=== PATIENT | female | born 1955 | race Caucasian/White ===

== ENCOUNTER 2019-02-20 14:14 | Emergency (ER) | payer MEDICARE, MEDICAID ==
[~2019-02-20] VITALS: Ht 157.5 cm; Wt 77.3 kg
[2019-02-20 15:46] LABS: CLARITY,URINE SLIGHTLY CLOUDY (Clear); COLOR,URINE YELLOW (Yellow); GLUCOSE, URINE NEGATIVE (Neg); KETONES,URINE NEGATIVE (Neg); LEUKOCYTE ESTERASE ,URINE SMALL (Neg); NITRITES, URINE NEGATIVE (Neg); OCCULT BLOOD,URINE NEGATIVE (Neg); PROTEIN,URINE NEGATIVE (Neg); UA COLLECTION TYPE CLN CATCH MIDSTREAM; UROBILINOGEN,URINE 0.2 E.U/dL (0.2-1.0)
[2019-02-20 15:55] LABS: SQUAMOUS EPITHELIAL CELL,UR MODERATE /LPF (FEW)
[2019-02-20 15:58] LABS: BACTERIA,URINE 3+ /HPF (Neg); RBC,URINE 0-2 /HPF (0-2)
[2019-02-20 15:59] LABS: TRANSITIONAL EPI CELLS,URINE FEW /HPF
[2019-02-20] MEDS ORDERED: predniSONE 20 mg tablet PO ONE (16:30)
[2019-02-20] MEDS ORDERED: PRED20TA PO (16:33)
[2019-02-20 16:47] LABS: BASOPHILS # (AUTO) 0.1 X10'3 (0-0.2); BASOPHILS % (AUTO) 1.2 % (0-1); EOSINOPHILS % (AUTO) 0.4 % (0-6); HEMATOCRIT 38.5 % (35.0-45.0); HEMOGLOBIN 13.1 g/dl (12.0-16.0); LYMPHOCYTES # (AUTO) 3.5 X10'3 (1.1-4.8); LYMPHOCYTES % (AUTO) 42.3 % (21-51); MEAN CORPUSCULAR HEMOGLOBIN 30.6 PG (27.0-31.0); MEAN CORPUSCULAR HGB CONC 33.9 g/dL (33.0-36.5); MEAN CORPUSCULAR VOLUME 90.2 FL (78-98); MEAN PLATELET VOLUME 8.5 FL (7.4-10.4); MONOCYTES # (AUTO) 0.5 X10'3 (0-0.9); MONOCYTES % (AUTO) 5.8 % (2-12); NEUTROPHILS # (AUTO) 4.1 X10'3 (1.8-7.7); NEUTROPHILS % (AUTO) 50.3 % (42-75); PLATELET COUNT 350 X10'3 (140-440); RED BLOOD COUNT 4.27 X10'6 (4.20-5.60); RED CELL DISTRIBUTION WIDTH 14.8 % (11.5-14.5); WHITE BLOOD COUNT 8.2 X10'3 (4.5-11.0)
[2019-02-20 16:50] VITALS: BP 134/78
[2019-02-20 17:09] LABS: ALANINE AMINOTRANSFERASE 26 U/L (12-78); ALBUMIN 4.1 G/DL (3.4-5.0); ALKALINE PHOSPHATASE 117 IU/L (46-116); ANION GAP 6 (8-16); ASPARTATE AMINO TRANSFERASE 25 U/L (10-37); BILIRUBIN,TOTAL 0.6 MG/DL (0.1-1.0); BLOOD UREA NITROGEN 15 MG/DL (7-18); CALCIUM 9.7 MG/DL (8.5-10.1); CHLORIDE 103 MMOL/L (99-107); GLUCOSE 98 MG/DL (70-104); POTASSIUM 4.2 MMOL/L (3.5-5.1); SODIUM 138 MMOL/L (135-145); TOTAL CARBON DIOXIDE 28.6 MMOL/L (24-32); TOTAL PROTEIN 8.1 G/DL (6.4-8.2); eGFR 56 ML/MIN
[2019-02-20 17:24] LABS: C-REACTIVE PROTEIN 0.19 MG/DL (0.0-0.5)
--- NOTE | 2019-02-23 09:36 | NUR ---
PT CALLED WELLNESS CHECK. INFORMED THAT UA/CULT WAS POSITIVE FOR UTI AND THAT AN RX FOR ABX WILL BE CALLED IN FOR HER. PT REQUESTED THAT RX BE CALLEDT OT [facility] ON [address] PT STATES THAT SHE CONTINUES TO HAVE ARM PAIN WITH NUMBNESS. STATES THAT IF FEELS LIKE HER ARM HAS A TURNICUT ON IT AND THAT HER ARM IS GOING TO EXPLODE. STATES THAT SHE HAS AN APPT WITH PMD THIS WEEK. ADVISED PT TO KEEP APPT WITH PMD FOR HER ARM AND TO NOTIFIY HIM THAT SHE WAS DX WITH A UTI AND IS ON ABX FOR IT. RX FOR KEFLEX 500MG PO QID X 7 DAYS CALLED INTO [facility] [address].
== END 2019-02-20 16:55 | disposition home or self-care (01) ==
LOC: ER 14:15
DX: M79.622 Pain in left upper arm (principal); M25.512 Pain in left shoulder; R07.89 Other chest pain; M54.5 Low back pain; G89.29 Other chronic pain; Z88.2 Allergy status to sulfonamides; Z88.8 Allergy status to other drugs, medicaments and biological substances; Z79.899 Other long term (current) drug therapy
CPT/HCPCS: 36415; 71045; 80053; 81001; 84484; 85025; 85651; 86140; 87077; 87088; 87186; 93005; 99284; J7512

== ENCOUNTER 2023-02-01 15:21 | Emergency (ER) | payer MEDICARE, MEDICAID ==
[~2023-02-01] VITALS: Ht 157.5 cm; Wt 81.0 kg
[2023-02-01 15:30] VITALS: BP 117/78
[2023-02-01] MEDS ORDERED: HYDROcodone/acetaminophen 10/325mg tab PO ONE (16:00)
[2023-02-01] MEDS ORDERED: ketorolac trometh. 30mg/ml inj. IM ONE (16:00)
[2023-02-01] MEDS ORDERED: HYDR-3965 PO (16:58)
--- NOTE | 2023-02-01 17:06 | NUR ---
Pt offered crutches however she refused.
== END 2023-02-01 17:37 | disposition home or self-care (01) ==
LOC: ER 15:22
DX: M25.552 Pain in left hip (principal); Z88.2 Allergy status to sulfonamides; Z88.8 Allergy status to other drugs, medicaments and biological substances
CPT/HCPCS: 73502; 96372; 99283; J1885

== ENCOUNTER 2024-08-11 10:19 | Outpatient (CLI) | payer MEDICARE, MEDICAID | END 2024-08-11 23:59 | disposition home or self-care (01) | LOC: MRI02 10:19 | PROVIDERS: ATTEND Podiatrist Foot & Ankle Surgery | DX: M76.891 Other specified enthesopathies of right lower limb, excluding foot (principal); R60.0 Localized edema; M79.671 Pain in right foot; M72.2 Plantar fascial fibromatosis; G57.91 Unspecified mononeuropathy of right lower limb | CPT/HCPCS: 73721 ==

== ENCOUNTER 2025-02-13 10:59 | Emergency (ER) | payer MEDICARE, MEDICAID ==
[~2025-02-13] VITALS: Ht 154.9 cm; Wt 73.5 kg
[2025-02-13 11:01] VITALS: TEMP 97.3
[2025-02-13 12:09] LABS: BASOPHILS # (AUTO) 0.1 X10'3 (0-0.2); BASOPHILS % (AUTO) 2.5 % (0-1); EOSINOPHILS # (AUTO) 0.1 X10'3 (0-0.9); EOSINOPHILS % (AUTO) 1.1 % (0-6); HEMATOCRIT 39.1 % (35.0-45.0); HEMOGLOBIN 13.1 g/dl (12.0-16.0); LYMPHOCYTES # (AUTO) 2.4 X10'3 (1.1-4.8); LYMPHOCYTES % (AUTO) 44.6 % (21-51); MEAN CORPUSCULAR HEMOGLOBIN 28.3 PG (27.0-31.0); MEAN CORPUSCULAR HGB CONC 33.6 g/dL (33.0-36.5); MEAN CORPUSCULAR VOLUME 84.2 FL (78-98); MEAN PLATELET VOLUME 7.9 FL (7.4-10.4); MONOCYTES # (AUTO) 0.7 X10'3 (0-0.9); MONOCYTES % (AUTO) 13.2 % (2-12); NEUTROPHILS # (AUTO) 2.1 X10'3 (1.8-7.7); NEUTROPHILS % (AUTO) 38.6 % (42-75); PLATELET COUNT 381 X10'3 (140-440); RED BLOOD COUNT 4.64 X10'6 (4.20-5.60); WHITE BLOOD COUNT 5.4 X10'3 (4.5-11.0)
[2025-02-13 12:17] LABS: APTT 30 SECONDS (22-32); PROTHROMBIN TIME 10.1 SECONDS (9.0-12.0)
[2025-02-13 12:25] LABS: ALANINE AMINOTRANSFERASE 19 U/L (12-78); ALBUMIN 3.8 G/DL (3.4-5.0); ALBUMIN/GLOBULIN RATIO 0.9 (1.1-1.5); ALKALINE PHOSPHATASE 133 IU/L (46-116); ANION GAP 9 (8-16); ASPARTATE AMINO TRANSFERASE 22 U/L (10-37); BILIRUBIN,TOTAL 0.7 MG/DL (0.1-1.0); BLOOD UREA NITROGEN 9 MG/DL (7-18); BUN/CREATININE RATIO 7.9 (10.0-20.0); CALCIUM 8.8 MG/DL (8.5-10.1); CHLORIDE 103 MMOL/L (99-107); CREATININE 1.14 MG/DL (0.40-0.90); GLUCOSE 82 MG/DL (70-104); LIPASE 45 U/L (16-77); POTASSIUM 4.5 MMOL/L (3.5-5.1); SODIUM 137 MMOL/L (135-145); TOTAL CARBON DIOXIDE 25.4 MMOL/L (24-32); eCRCL 36 ML/MIN; eGFR 47 ML/MIN
--- NOTE | 2025-02-13 12:31 | RADIOLOGY REPORT ---
CT CT ABDOMEN PELVIS INDICATION: n/v/d EXAM DATE: 02/13/2025 12:00 PM COMPARISON: None RADIATION DOSE: CTDIvol: 26 mGy, DLP: 1245 mGy*cm PROCEDURE: Helical CT images were obtained of the abdomen and pelvis without IV contrast Sagittal and coronal reconstructions are provided. ORAL CONTRAST: None. ADDITIONAL IMAGES / REFORMATS: None All C T scans at this medical facility are performed using dose modulation techniques as appropriate to a p erformed exam including the following: Automated exposure control was utilized; adjustment of the MA and/or KV according to patient size; and use of iterative reconstruction technique. FINDINGS: LUNG BASE: Basilar atelectasis is seen. LIVER: Normal. GALLBLADDER AND BILIARY TREE: Absent gallbladder. No intra- or extrahepatic biliary ductal dilation. PANCREAS: Normal. SPLEEN: Normal. BOWEL: Normal. Appendix appears normal. ADRENALS: Normal. KIDNEYS AND URETER: Normal. BLADDER: Normal. REPRODUCTIVE ORGANS: Normal. LYMPH NODES:No lymphadenopathy. PERITONEUM: No ascites or free air. No other fluid collection. VESSELS: Scattered atherosclerotic calcifications are noted. RETROPERITONEUM: Normal. ABDOMINAL WALL: Umbilical hernia containing fat and bowel. BONES: Scattered osseous degenerative changes are noted. IMPRESSION: No acute intraabdominal abnormality. Umbilical hernia containing fat and bowel.
--- NOTE | 2025-02-13 13:39 | Physician Documentation ---
History of Present Illness ~ Chief Complaint: Diarrhea Stated Complaint: ABD PAIN, SHELLEY Time Seen by MD: 13:26 Primary Medical Doctor: EUFEMIA Mode of Arrival: Ambulatory HPI 69-year-old female presenting with diarrhea that has been ongoing for the past two weeks. Patient reports that it appears that now as of today the diarrhea has resolved but she was concerned and wanted to get checked out. She states that she can not identify any known triggers. The diarrhea was watery and what occur four to 5 times a day. She denies any abdominal pain, fever, chills, blood in the stool or any other associated symptoms. Denies any recent travel outside the country. Denies any new foods or medications. Medication Reconciliation Allergies: Coded Allergies: Sulfa (Sulfonamide Antibiotics) (Verified Allergy, Severe, ANAPHYLAXIS, 02/13/25) nitrofurantoin (Verified Allergy, Severe, ANAPHYLAXIS, 02/13/25) Past Medical History Past Medical History: Chronic Pain, Osteoarthritis Past Surgical History: other Alcohol Use: None Drug Use: none Lives In: Home Occupation: employed Review of Systems All Other Systems at this time: Reviewed and Negative Physical Exam Vital Signs: Temperature: 97.3, Source: Temporal, Heart Rate: 86, Respiratory Rate: 15, BP: 176/80, Pulse Oximetry: 98, Weight: 73.550 Physical Exam I have reviewed the triage vitals. CONST: Well developed and well nourished. In no acute distress HENT: Head Atraumatic EYES: Pupils are equal, round and reactive to light. Normal conjunctiva NECK: Normal range of motion. Supple. CARDIO: Normal rate and regular rhythm. No murmurs, rubs, or gallops. S1, S2. PULM/CHEST: No respiratory distress. Lungs clear to auscultation. No wheeze ABD: Soft and nontender. Nondistended. Bowel sounds normal. No guarding. : Exam deferred MSK: No edema. No deformity. NEURO: Alert and oriented to person, place and time. Moving all extremities SKIN: Warm and dry. PSYCH: Normal mood and affect. Good eye contact. Progress Results/Orders Results/Orders Orders - GEOVANI TADEO MD Urinalysis, Cult If Indicated (02/13/25 11:04) Completed Orders - GEOVANI TADEO MD Cbc/Diff (02/13/25 11:04) BMP (02/13/25 11:04) Lipase (02/13/25 11:04) CMP (02/13/25 11:04) Vital Signs 02/13/25 11:01 Temp 97.3 Pulse 86 Resp 15 B/P (MAP) 176/80 Pulse Ox 98 Laboratory Tests Test 02/13/25 11:56 White Blood Count 5.4 Red Blood Count 4.64 Hemoglobin 13.1 Hematocrit 39.1 Mean Corpuscular Volume 84.2 Mean Corpuscular Hemoglobin 28.3 Mean Corpuscular Hemoglobin Concent 33.6 Red Cell Distribution Width 15.0 H Platelet Count 381 Mean Platelet Volume 7.9 Neutrophils (%) (Auto) 38.6 L Lymphocytes (%) (Auto) 44.6 Monocytes (%) (Auto) 13.2 H Eosinophils (%) (Auto) 1.1 Basophils (%) (Auto) 2.5 H Neutrophils # (Auto) 2.1 Lymphocytes # (Auto) 2.4 Monocytes # (Auto) 0.7 Eosinophils # (Auto) 0.1 Basophils # (Auto) 0.1 CBC Comment Prothrombin Time 10.1 INR International Normalized Ratio 1.0 Activated Partial Thromboplast Time 30 Coagulation Comments Sodium Level 137 Potassium Level 4.5 Chloride Level 103 Carbon Dioxide Level 25.4 Anion Gap 9 Blood Urea Nitrogen 9 Creatinine 1.14 H Estimated GFR/1.73 m2 47 BUN/Creatinine Ratio 7.9 L Glucose Level 82 Calcium Level 8.8 Total Bilirubin 0.7 Aspartate Amino Transf (AST/SGOT) 22 Alanine Aminotransferase (ALT/SGPT) 19 Alkaline Phosphatase 133 H Total Protein 8.0 Albumin 3.8 Globulin 4.2 Albumin/Globulin Ratio 0.9 L Lipase 45 Chemistry Comments Medical Decision Making Additional Comments 69-year-old female presenting with diarrhea that has now resolved. The patient did take some Imodium earlier which may have helped curbed the diarrhea. Her lab workup is grossly unremarkable. CT of the abdomen and pelvis was done as well and did not show any signs of any acute intra-abdominal pathology. This point in time the patient looks well. Her blood pressure is slightly elevated and I informed her of this. I advised that she needs to follow up with the primary care physician for further evaluation and management of her blood pressure. Regarding the diarrhea, it is likely viral in nature especially given that it is now starting to resolve. There is a possibility of bacterial etiology versus other etiologies that we can not further rule out at this time however there are less likely. I advised the patient to monitor her symptoms for recurrence. If they do recur she is to follow up with the primary care physician for stool testing. Otherwise should they acutely worsen return to the ED immediately. Departure Disposition: HOME / SELF CARE / HOMELESS Impression: Primary Impression: Enteritis Additional Impression: Elevated blood pressure reading without diagnosis of hypertension Condition: Stable Discharge Instructions: Diarrhea, Adult Additional Instructions: Continue with the Imodium as needed for diarrhea. Monitor symptoms for any recurrence. Follow up with primary care physician in the next 2-3 days and return to the ED with any acutely worsening symptoms. Referrals: NO PRIMARY CARE PROVIDER (PCP) Signature Scribe Signature: 1 Attestation: 1 GEOVANI TADEO MD February 13, 2025 13:38
[2025-02-13 13:57] VITALS: BP 131/66; PULSE 68; RESP 14; O2SAT 98
[2025-02-13 14:49] LABS: BILIRUBIN,URINE NEGATIVE (Neg); CLARITY,URINE CLEAR (Clear); COLOR,URINE YELLOW (Yellow); GLUCOSE, URINE NEGATIVE (Neg); KETONES,URINE NEGATIVE (Neg); LEUKOCYTE ESTERASE ,URINE NEGATIVE (Neg); NITRITES, URINE NEGATIVE (Neg); OCCULT BLOOD,URINE NEGATIVE (Neg); PROTEIN,URINE NEGATIVE (Neg); UROBILINOGEN,URINE 0.2 E.U/dL (0.2-1.0)
[2025-02-13 14:52] LABS: UA COLLECTION TYPE VOIDED
== END 2025-02-13 13:59 | disposition home or self-care (01) ==
LOC: ER 11:00
DX: K52.9 Noninfective gastroenteritis and colitis, unspecified (principal); M19.90 Unspecified osteoarthritis, unspecified site; Z88.1 Allergy status to other antibiotic agents; Z88.2 Allergy status to sulfonamides
CPT/HCPCS: 36415; 74176; 80053; 81003; 83690; 85025; 85610; 85730; 99284